=== PATIENT | female | born 1985 | race Caucasian/White ===

== ENCOUNTER 2019-01-30 04:26 | Emergency (ER) | payer SELFPAY ==
--- NOTE | 2019-01-30 04:50 | NUR ---
PATIENT WAS CALLED SEVERAL TIMES TO BE TRIAGED. PATIENT WAS NOT PRESENT. PATIENT WAS NOT TRIAGED OR SEEN BY ERMD.
== END 2019-01-30 04:51 | disposition left against medical advice (07) ==
LOC: ER 04:31
DX: Z53.21 Procedure and treatment not carried out due to patient leaving prior to being seen by health care provider (principal)

== ENCOUNTER 2019-01-30 06:20 | Emergency (ER) | payer SELFPAY ==
[~2019-01-30] VITALS: Ht 160 cm; Wt 56.7 kg
--- NOTE | 2019-01-30 06:40 | NUR ---
Dr. Thomson at bedside for MSE.
--- NOTE | 2019-01-30 07:01 | NUR ---
Patient given written and verbal discharge instructions. Patient verbalizes understanding of instructions. Patient is ambulatory with steady gait. Refuses offer of [facility]ci placement. Patient given list of available shelters in surrounding area. Pt out of ER with steady gait, provided with clean socks, lotion, VSS, no acute signs of distress, all belongings taken, refuses all other hospital services at this time.
== END 2019-01-30 07:06 | disposition home or self-care (01) ==
LOC: ER 06:22
DX: S90.822A Blister (nonthermal), left foot, initial encounter (principal); S90.821A Blister (nonthermal), right foot, initial encounter; F17.200 Nicotine dependence, unspecified, uncomplicated; X58.XXXA Exposure to other specified factors, initial encounter; Y93.89 Activity, other specified; Y92.89 Other specified places as the place of occurrence of the external cause; Y99.8 Other external cause status
CPT/HCPCS: A4663